=== PATIENT | female | born 1960 | race Caucasian/White ===

== ENCOUNTER → 2016-09-13 | Outpatient (CLI) | payer BC ==
[~2016-09-13] MED LIST: AMPH10TA2 PO; AMPH25CA PO; AMPHETAMINE PO; CLR10 PO; ESCI10TA17 PO; MULTTAB58 PO; OXYC1TAB3 PO; PROP10TA7 PO; TAMS0.4C38 PO
== END | disposition home or self-care (01) ==
LOC: C.PAPS 09:24
PROVIDERS: ATTEND Obstetrics & Gynecology
DX: Z01.419 Encounter for gynecological examination (general) (routine) without abnormal findings (principal)

== ENCOUNTER 2017-03-02 19:32 | Emergency (ER) | payer BC ==
[~2017-03-02] VITALS: Ht 160 cm; Wt 55.9 kg
[~2017-03-02 19:32] MED LIST changes: -AMPH10TA2 PO; -AMPH25CA PO; -CLR10 PO; -ESCI10TA17 PO; -OXYC1TAB3 PO; -TAMS0.4C38 PO
[2017-03-02 19:34] VITALS: TEMP 36.5; Ht 160 cm; Wt 55.9 kg
[2017-03-02] MEDS ORDERED: KETOROLAC TROMETHAMINE 30 MG/ML VIAL IV STA (19:51)
[2017-03-02] MEDS ORDERED: ONDANSETRON INJ 2 MG/ML 2 ML VIAL IV STA (19:51)
[2017-03-02] MEDS ORDERED: SODIUM CHLORIDE 0.9% 1000ML 2,000 ML IV STA (19:51)
[2017-03-02 20:11] LABS: BASO % 0.3 %; BASO ABS # 0.03 K/uL (0-0.2); COMPLETE YES; EOS % 7.8 %; HEMATOCRIT 41.9 % (37-47); IG% 0.3 %; LYMPH ABS # 2.85 K/uL (1.2-3.4); MEAN CELL VOLUME 84.8 fL (80-100); MEAN CORPUSCULAR HEMOGLOBIN 28.9 pg (25-34); MEAN CORPUSCULAR HGB CONC 34.1 g/dl (32-36); MEAN PLATELET VOLUME 9.2 fL (7.4-10.4); MONO % 7.3 %; NEUT % 52.3 %; PLATELET COUNT 297 K/uL (130-400); RED BLOOD COUNT 4.94 M/uL (4.2-5.4)
[2017-03-02] MEDS ORDERED: ESCI10TA17 PO (20:16)
[2017-03-02] MEDS ORDERED: AMPH25CA PO (20:16)
[2017-03-02] MEDS ORDERED: AMPH10TA2 PO (20:16)
[2017-03-02 20:18] LABS: PREG INTERNAL NEGATIVE QC NEG CLEAR BACKGROUND; PREG INTERNAL POSITIVE QC POS CONTROL LINE; URINE APPEARANCE TURBID (CLEAR); URINE BILIRUBIN NEG (NEG); URINE COLOR DK YELLOW; URINE EPITHELIAL CELL AUTO >30 /lpf (0-5); URINE NITRITE NEG (NEG); URINE SPECIFIC GRAVITY 1.035 (1.000-1.030); UROBILINOGEN NEG (NEG); ZZUR CULT IF INDIC CLEAN CATCH YES
[2017-03-02] MEDS ORDERED: CLR10 PO (20:25)
[2017-03-02 20:27] LABS: MANUAL MICROSCOPIC REQUIRED? NO; REVIEW REQ? YES
[2017-03-02 20:32] LABS: ALT/SGPT 37 U/L (12-78); BLOOD UREA NITROGEN 29 mg/dl (7-18); BUN/CREATININE RATIO 35.6 (10-20); CALCIUM 9.4 mg/dl (8.5-10.1); CARBON DIOXIDE 28 mmol/L (21-32); CHLORIDE 105 mmol/L (98-107); GLUCOSE 118 mg/dl (70-99); POTASSIUM 3.9 mmol/L (3.5-5.1); SODIUM 140 mmol/L (136-145)
[2017-03-02 20:35] LABS: ALKALINE PHOSPHATASE 126 U/L (45-117); AST/SGOT 21 U/L (15-37)
--- NOTE | 2017-03-02 20:39 | DIAGNOSTIC IMAGING REPORT ---
CT OF THE ABDOMEN AND PELVIS WITHOUT CONTRAST CLINICAL HISTORY: Right flank pain. COMPARISON STUDY: No previous studies for comparison. TECHNIQUE: Axial images of the abdomen and pelvis were obtained without IV contrast. Images were reviewed in the axial, sagittal, and coronal planes. A dose lowering technique was utilized adhering to the principles of ALARA. FINDINGS: Mild right hydroureteronephrosis is present. The course of the right ureter is difficult to follow on this exam but a linear 3 mm x 1 mm calcification along the right posterior aspect of the bladder shown on axial image 347 of [id number] could reflect a tiny distal right ureteral calculus. There is mild right perinephric and periureteral infiltration. Unenhanced images of liver, spleen, adrenal glands and pancreas are normal. There is no evidence for a bowel obstruction. The appendix is normal. A moderate amount of stool is noted within the colon. There are no suspicious osseous lesions. 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 There is no lymphadenopathy. IMPRESSION: Mild right hydroureteronephrosis with mild perinephric and periureteral infiltration. The findings are likely due to a tiny 3 mm x 1 mm distal right ureteral calculus although the course of the right ureter is difficult to follow on this exam. Electronically signed by: Renato Freire M.D. 03/02/2017 8:37 PM Dictated Date/Time: 03/02/2017 8:29 PM
[2017-03-02] MEDS ORDERED: MoRPHine SULFATE 10 MG/ML CARP/VIAL IV STA (21:13)
[2017-03-02 21:16] LABS: URINE APPEARANCE CLOUDY (CLEAR); URINE BILIRUBIN NEG (NEG); URINE COLOR YELLOW; URINE EPITHELIAL CELL AUTO >30 /lpf (0-5); URINE NITRITE NEG (NEG); URINE PH 6.5 (4.5-7.5); URINE SPECIFIC GRAVITY 1.031 (1.000-1.030); UROBILINOGEN NEG (NEG)
[2017-03-02 21:19] LABS: MANUAL MICROSCOPIC REQUIRED? NO; REVIEW REQ? YES
[2017-03-02 21:27] LABS: URINE MUCUS PRESENT (NONE PRSENT); ZZURINE CULT IF INDIC CATH YES
[2017-03-02] MEDS ORDERED: OXYC1TAB3 PO (22:18)
[2017-03-02] MEDS ORDERED: TAMS0.4C38 PO (22:18)
[2017-03-02] MEDS ORDERED: OXYCODONE IR HOME PACK PO ONE (22:30)
[2017-03-02 22:44] VITALS: BP 144/100; PULSE 85; O2SAT 97
--- NOTE | 2017-03-03 | EMERGENCY ROOM VISIT NOTE ---
History Report prepared by Karolina: Aidan Garcia Under the Supervision of: Dr. Phu Vogel D.O. First contact with patient: 19:39 Chief Complaint: FLANK PAIN Stated Complaint: LOWER RIGHT BACK PAIN History of Present Illness The patient is a 56 year old female who presents to the Emergency Room with complaints of right flank pain which worsened about an hour ago. The patient states that it started around 1300 today, and then it went away, but it came back. She additionally states that she is having some nausea, vomiting, and urinary urgency. She states that she has never had pain like this before. She denies any history of kidney stones or abdominal surgeries. She states that her last normal menstrual period was in June of 2014. Pt denies headache, change in vision, fevers, chest pain, shortness of breath, diarrhea, pain with urination, and melena. Source of History: patient Onset: 1300 Position: other (right flank) Timing: worsening Associated Symptoms: + nausea, + vomiting, + urinary symptoms Review of Systems Pt denies headache, change in vision, fevers, chest pain, shortness of breath, nausea, vomiting, diarrhea, pain with urination, and melena. Past Medical & Surgical Medical Problems: (1) Asthma (2) Attention deficit disorder Social History Smoking Status: Never Smoker Housing Status: lives with family Occupation Status: employed Current/Historical Medications Scheduled Amphetamine-Dextroamphetamine 10MG (Adderall 10MG), 15 MG PO ACHS Amphetamine-Dextroamphetamine 25MG (Adderall Xr 25MG), 25 MG PO DAILY Escitalopram (Lexapro), 10 MG PO DAILY Loratadine (Claritin), 10 MG PO DAILY Tamsulosin Hcl (Flomax), 0.4 MG PO DAILY Scheduled PRN Oxycodone Immediate Rel Tab (Roxicodone Ir), 5 MG PO Q6H PRN for Pain Allergies Uncoded Allergies: FOOD ALLERGIES (Allergy, Intermediate, SWELLING, TINGLING, 08/04/13) Physical Exam Vital Signs Date Time Temp Pulse Resp B/P (MAP) Pulse Ox O2 Delivery O2 Flow Rate FiO2 03/02/17 22:44 85 20 144/100 97 03/02/17 21:48 79 18 121/80 98 Room Air 03/02/17 20:36 97 18 141/90 100 Room Air 03/02/17 19:34 36.5 79 16 155/99 100 Room Air Physical Exam GENERAL: Disheveled, sitting up in bed, minimal distress. EYE EXAM: normal conjunctiva OROPHARYNX: no exudate, no erythema, lips, buccal mucosa, and tongue normal and mucous membranes are moist NECK: supple, no nuchal rigidity, no adenopathy, non-tender LUNGS: Clear to auscultation. Normal chest wall mechanics HEART: no murmurs, S1 normal and S2 normal ABDOMEN: abdomen soft, non-tender, normo-active bowel sounds, no masses, no rebound or guarding. BACK: Back is symmetrical on inspection and there is no deformity, no midline tenderness, no CVA tenderness. SKIN: no rashes and no bruising UPPER EXTREMITIES: upper extremities are grossly normal. LOWER EXTREMITIES: No pitting edema. NEURO EXAM: Normal sensorium, cranial nerves II-XII grossly intact, normal speech, no gross weakness of arms, no gross weakness of legs. Gross sensation intact. Medical Decision & Procedures ER Provider Diagnostic Interpretation: Radiology results as stated below per my review and the radiologist's interpretation: CT OF THE ABDOMEN AND PELVIS WITHOUT CONTRAST CLINICAL HISTORY: Right flank pain. COMPARISON STUDY: No previous studies for comparison. TECHNIQUE: Axial images of the abdomen and pelvis were obtained without IV contrast. Images were reviewed in the axial, sagittal, and coronal planes. A dose lowering technique was utilized adhering to the principles of ALARA. FINDINGS: Mild right hydroureteronephrosis is present. The course of the right ureter is difficult to follow on this exam but a linear 3 mm x 1 mm calcification along the right posterior aspect of the bladder shown on axial image 347 of [id number] could reflect a tiny distal right ureteral calculus. There is mild right perinephric and periureteral infiltration. Unenhanced images of liver, spleen, adrenal glands and pancreas are normal. There is no evidence for a bowel obstruction. The appendix is normal. A moderate amount of stool is noted within the colon. There are no suspicious osseous lesions. 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 There is no lymphadenopathy. IMPRESSION: Mild right hydroureteronephrosis with mild perinephric and periureteral infiltration. The findings are likely due to a tiny 3 mm x 1 mm distal right ureteral calculus although the course of the right ureter is difficult to follow on this exam. Electronically signed by: Renato Freire M.D. 03/02/2017 8:37 PM Dictated Date/Time: 03/02/2017 8:29 PM Laboratory Results 03/02/17 19:50 Red Blood Count 4.94, Mean Corpuscular Volume 84.8, Mean Corpuscular Hemoglobin 28.9, Mean Corpuscular Hemoglobin Concent 34.1, Mean Platelet Volume 9.2, Neutrophils (%) (Auto) 52.3, Lymphocytes (%) (Auto) 32.0, Monocytes (%) (Auto) 7.3, Eosinophils (%) (Auto) 7.8, Basophils (%) (Auto) 0.3, Neutrophils # (Auto) 4.65, Lymphocytes # (Auto) 2.85, Monocytes # (Auto) 0.65, Eosinophils # (Auto) 0.69, Basophils # (Auto) 0.03 03/02/17 19:50 Test 03/02/17 19:50 03/02/17 20:55 White Blood Count 8.90 K/uL (4.8-10.8) Red Blood Count 4.94 M/uL (4.2-5.4) Hemoglobin 14.3 g/dL (12.0-16.0) Hematocrit 41.9 % (37-47) Mean Corpuscular Volume 84.8 fL (80-100) Mean Corpuscular Hemoglobin 28.9 pg (25-34) Mean Corpuscular Hemoglobin Concent 34.1 g/dl (32-36) Platelet Count 297 K/uL (130-400) Mean Platelet Volume 9.2 fL (7.4-10.4) Neutrophils (%) (Auto) 52.3 % Lymphocytes (%) (Auto) 32.0 % Monocytes (%) (Auto) 7.3 % Eosinophils (%) (Auto) 7.8 % Basophils (%) (Auto) 0.3 % Neutrophils # (Auto) 4.65 K/uL (1.4-6.5) Lymphocytes # (Auto) 2.85 K/uL (1.2-3.4) Monocytes # (Auto) 0.65 K/uL (0.11-0.59) Eosinophils # (Auto) 0.69 K/uL (0-0.5) Basophils # (Auto) 0.03 K/uL (0-0.2) RDW Standard Deviation 39.3 fL (36.4-46.3) RDW Coefficient of Variation 12.9 % (11.5-14.5) Immature Granulocyte % (Auto) 0.3 % Immature Granulocyte # (Auto) 0.03 K/uL (0.00-0.02) Urine Crystals CALCIUM OXALATE (NONE Urine Pathogenic Casts /lpf (0) Urine Test NEG (NEG) Anion Gap 7.0 mmol/L (3-11) Est Creatinine Clear Calc Drug Dose 65.7 ml/min Estimated GFR () 96.2 Estimated GFR (Non- 83.0 BUN/Creatinine Ratio 35.6 (10-20) Calcium Level 9.4 mg/dl (8.5-10.1) Total Bilirubin 0.5 mg/dl (0.2-1) Direct Bilirubin < 0.1 mg/dl (0-0.2) Aspartate Amino Transf (AST/SGOT) 21 U/L (15-37) Alanine Aminotransferase (ALT/SGPT) 37 U/L (12-78) Alkaline Phosphatase 126 U/L (45-117) Total Protein 7.8 gm/dl (6.4-8.2) Albumin 4.1 gm/dl (3.4-5.0) Lipase 320 U/L (73-393) Urine Color YELLOW Urine Appearance CLOUDY (CLEAR) Urine pH 6.5 (4.5-7.5) Urine Specific [place] 1.031 (1.000-1.030) Urine Protein NEG (NEG) Urine Glucose (UA) NEG (NEG) Urine Ketones TRACE (NEG) Urine Occult Blood 3+ (NEG) Urine Nitrite NEG (NEG) Urine Bilirubin NEG (NEG) Urine Urobilinogen NEG (NEG) Urine Leukocyte Esterase NEG (NEG) Urine WBC (Auto) 1-5 /hpf (0-5) Urine RBC (Auto) >30 /hpf (0-4) Urine Hyaline Casts (Auto) 0 /lpf (0-5) Urine Epithelial Cells (Auto) >30 /lpf (0-5) Urine Bacteria (Auto) 1+ (NEG) Urine Renal Epithelial Cells /lpf (0-5) Urine Mucus PRESENT (NONE PRSENT) Laboratory results per my review. Medications Administered Medications (Trade) Dose Ordered Sig/[place] Route Start Time Stop Time Status Last Admin Dose Admin Sodium Chloride 2,000 ml @ 999 mls/hr Q2H1M STAT IV 03/02/17 19:51 03/02/17 21:51 DC 03/02/17 20:02 999 MLS/HR Ketorolac Tromethamine (Toradol Inj) 30 mg NOW STAT IV 03/02/17 19:51 03/02/17 19:53 DC 03/02/17 20:02 30 MG Ondansetron HCl (Zofran Inj) 4 mg NOW STAT IV 03/02/17 19:51 03/02/17 19:53 DC 03/02/17 20:01 4 MG Morphine Sulfate (MoRPHine SULFATE INJ) 6 mg NOW STAT IV 03/02/17 21:13 03/02/17 21:14 DC 03/02/17 21:29 6 MG Oxycodone HCl (Roxicodone Immediate Rel 5MG Home Pack) 1 homepack UD ONCE PO 03/02/17 22:30 03/02/17 22:31 DC 03/02/17 22:36 1 HOMEPACK ED Course ED COURSE: Vital signs were reviewed and showed hypertension The patients medical record was reviewed The above diagnostic studies were performed and reviewed. ED treatments and interventions as stated above. 1938: The patient was evaluated in room C3. A complete history and physical examination was performed. 1950: Zofran Inj 4mg IV, Toradol Inj 30mg IV, Sodium Chloride 2000 ml @ 999 mls/ hr IV 2112: Morphine Sulfate 6mg IV 7: Upon reevaluation, the patient is feeling better.I discussed my findings with the patient and she understands and agrees with the treatment plan. Based on the patients age, coexisting illnesses, exam and lab findings the decision to treat as an outpatient was made. The patient remained stable while under my care. The patient appeared well at the time of discharge. 0: Roxicodone Immediate Rel 5mg 1 Home Pack PO Medical Decision Differential diagnoses includes but is not limited to gastritis, peptic ulcer disease, GERD, gallbladder disease, pancreatitis, small bowel obstruction, acute coronary syndrome, pericarditis, ischemic bowel, irritable bowel disease, irritable bowel syndrome, appendicitis, diverticulitis, malignancy, hernia, urinary tract infection, torsion, /ectopic , perforation, trauma, infectious. Patient is a 56-year-old female who presents the ER for flank pain. She notes that started an hour ago and associated with nausea. She does have urinary urgency. CBC along with BMP, LFTs, bilirubin and lipase is unremarkable. Initial UA was contaminated. Repeat shows no signs of infection. Urine was negative. CT shows mild right hydronephrosis with perinephric and periureteral infiltration. She has a 3 x 1 mm stone. No fevers. Patient was given Flomax and OxyIR upon discharge. Pain was controlled in the ER with narcotics and Toradol. She is given referral to urology. Discussed with Pt concerning signs and symptoms to watch out for. Pt was instructed to follow up with their PCP and discussed with the patient their option to return to the ED at anytime for persistent or worsening symptoms. The appropriate anticipatory guidance and out-patient management, including indications for return to the emergency department, were explained at length to the patient and understood. Medication Reconcilliation Current Medication List: was personally reviewed by me Blood Pressure Screening Patient's blood pressure: Elevated blood pressure Blood pressure disposition: Elevated BP felt to be situational Impression Primary Impression: Renal colic Additional Impression: Hydronephrosis Scribe Attestation The scribe's documentation has been prepared under my direction and personally reviewed by me in its entirety. I confirm that the note above accurately reflects all work, treatment, procedures, and medical decision making performed by me. Departure Information Dispostion Home / Self-Care Prescriptions Oxycodone Immediate Rel Tab (ROXICODONE IR) 5 Mg Tab 5 MG PO Q6H Y for Pain, #14 TAB Prov: Phu Vogel, DO 03/02/17 Tamsulosin Hcl (FLOMAX) 0.4 Mg Cap 0.4 MG PO DAILY, #10 CAP Prov: Phu Vogel, DO 03/02/17 Referrals Rosita Montaño D.OJesus (PCP) Forms HOME CARE DOCUMENTATION FORM, IMPORTANT VISIT INFORMATION Patient Instructions Kidney Stones Eval, Kidney Stones Expectant Therapy, My [facility] Additional Instructions Please follow up with your primary care doctor or if you are a student, [facility] with in the next 24 hours. Any worsening of your symptoms, please return to the ED immediately. This includes any fevers greater than 100.4, worsening pain, chest pain, shortness breath, persistent nausea, vomiting, unable to eat or drink, or any other concerning signs or symptoms from your standpoint. You were given medications during this visit that will inhibit your ability to drive, operate machinery and work. Please do NOT drive, operate machinery, drink alcohol or work for the next 12hrs. Problem Qualifiers Additional Impression: Hydronephrosis Hydronephrosis type: with renal calculous obstruction Qualified Codes: N13.2 - Hydronephrosis with renal and ureteral calculous obstruction
== END 2017-03-02 22:45 | disposition home or self-care (01) ==
LOC: C.EDB 19:34 → C.EDC 22:45
DX: N23 Unspecified renal colic (principal); N13.30 Unspecified hydronephrosis; F90.9 Attention-deficit hyperactivity disorder, unspecified type; J45.909 Unspecified asthma, uncomplicated; Z79.899 Other long term (current) drug therapy; Z91.018 Allergy to other foods